=== PATIENT | female | born 1980 ===

== ENCOUNTER 2017-11-30 14:26 | Emergency (ER) | payer OTHER ==
[2017-11-30 14:38] VITALS: BP 139/84; PULSE 78; RESP 18; TEMP 98.5; O2SAT 98
[2017-11-30] MEDS ORDERED: Lactated Ringer's 1,000 ML IV STA (15:07)
--- NOTE | 2017-11-30 15:35 | ED PDOC ---
HPI: Female Pain Time Seen by Provider: 11/30/17 14:49 Chief Complaint (Nursing): Female Genitourinary Chief Complaint (Provider): Vaginal Bleeding and Pelvic Pain History Per: Patient History/Exam Limitations: no limitations Onset/Duration Of Symptoms: Days (x1) Current Symptoms Are (Timing): Still Present Additional Complaint(s): 37 year old female with no significant past medical history, who presents to the ED complaining of vaginal bleeding and pelvic pain x1 day. Patient is and 5 weeks . Denies starting care. Reports vaginal spotting today with a small clot and pelvic cramping pain. Also reporting intermittent morning sickness during this . Denies abnormal vaginal discharge or urinary symptoms. PMD: None Provided : 2 Para: 1 Past Medical History Reviewed: Historical Data, Nursing Documentation, Vital Signs Vital Signs: Last Vital Signs Temp 98.5 F 11/30/17 14:34 Pulse 78 11/30/17 14:34 Resp 18 11/30/17 14:34 BP 139/84 11/30/17 14:34 Pulse Ox 98 11/30/17 14:34 - Medical History PMH: No Chronic Diseases - Surgical History Surgical History: No Surg Hx - Family History Family History: States: Unknown Family Hx - Social History Current smoker - smoking cessation education provided: No Alcohol: None - Home Medications Home Medications: Ambulatory Orders Medication Instructions Recorded Acetaminophen [Tylenol Extra 1,000 mg PO Q6 PRN #60 tablet 11/30/17 Strength] Multivit/Folic Acid/I 1 tab PO DAILY #100 tab 11/30/17 [ Plus] - Allergies Allergies/Adverse Reactions: Allergies Allergy/AdvReac Type Severity Reaction Status Date / Time No Known Allergies Allergy Verified 11/30/17 14:38 Review of Systems ROS Statement: Except As Marked, All Systems Reviewed And Found Negative Gastrointestinal: Positive for: Nausea, Vomiting Genitourinary Female: Positive for: Vaginal Bleeding, Pelvic Pain. Negative for : Dysuria, Frequency, Incontinence, Vaginal Discharge Physical Exam - Reviewed Nursing Documentation Reviewed: Yes Vital Signs Reviewed: Yes - Physical Exam Appears: Positive for: In Acute Distress (mild painful) Head Exam: Positive for: ATRAUMATIC, NORMOCEPHALIC Skin: Positive for: Warm, Dry Neck: Positive for: Painless ROM, Supple Cardiovascular/Chest: Positive for: Regular Rate, Rhythm, Chest Non Tender. Negative for: Murmur Respiratory: Positive for: Normal Breath Sounds. Negative for: Wheezing Gastrointestinal/Abdominal: Positive for: Soft, Tenderness (suprapubic tenderness to palpation). Negative for: Mass, Distended, Guarding, Rebound Back: Positive for: Normal Inspection. Negative for: Decreased ROM Extremity: Positive for: Normal ROM. Negative for: Deformity Lymphatic: Negative for: Adenopathy Neurologic/Psych: Positive for: Alert. Negative for: Motor/Sensory Deficits - Laboratory Results Result Diagrams: 11/30/17 15:33 - ECG O2 Sat by Pulse Oximetry: 98 (RA) Pulse Ox Interpretation: Normal Medical Decision Making Medical Decision Making: Time: 14:51 Initial Impression: Vaginal bleeding in early . Differential diagnoses include, but are not limited to threatened miscarriage, ectopic , dehydration, and UTI Initial Plan: --Blood type and screen --Beta-HCG, quantitative --ED Urine dipstick --ED Urine --CBC w/ differential --Chlamydia/GC RNA, TMA --Lactated Ringer's 1,000 mls/hr --Urinalysis --US OB Transvaginal --Reevaluation Time: 18:52 FINDINGS: A single live intrauterine is noted with a heart rate of 153 beats per minute. A normal yolk sac is observed. [place] rump length measures 1.13 cm yielding an estimated gestational age of 7 weeks and 2 days. Solid appearing lesion in the left ovary measuring 2.1 cm with increased vascularity. The right ovary is normal No free fluid is seen in the cul-de-sac. IMPRESSION: Single live early intrauterine with an estimated due date of 2017. Solid appearing lesion in the left ovary measuring 2.1 cm. Continued sonographic followup recommended Labs c/w 7 wk . No clinically significant lab abnormalities 7p Pt reports feeling better after IVF. [facility] Reviewed results with pt and need for repeat ultrasound, specifically for LEFT ovary. Scribe Attestation: Documented by Mark Stephens, acting as a scribe for Delmy Salgado MD. Provider Scribe Attestation: All medical record entries made by the Scribe were at my direction and personally dictated by me. I have reviewed the chart and agree that the record accurately reflects my personal performance of the history, physical exam, medical decision making, and the department course for this patient. I have also personally directed, reviewed, and agree with the discharge instructions and disposition. Disposition - Clinical Impression Clinical Impression: Threatened miscarriage, Abdominal pain in Counseled Patient/Family Regarding: Studies Performed, Diagnosis - Disposition [facility] - [facility] Disposition: Routine/Home Disposition Time: 19:08 Condition: STABLE Additional Instructions: WILTON VITAMINAS DIARIO WILTON TYLENOL PARA DOLOR KALIE MUCHO LIQUIDOS Y DESCANSE. NO ALGUNAS EN LA VAGINA: NO SEXO, NO TAMPON, NO DOUCHE POR 3 MICHEL REGRESA SI SIENTE PEOR, SI ESTA [place] MAS QUE PAOLA KOTEX CADA PAOLA HORA, MUCHO DOLOR, SI SIENTE PERDIR CONOSIMIENTO, O OTRAS MALAS SINTOMAS VISITA A [facility] A CONTINUAR TRATIMIENT DE EMBERAZO. NECESITA REPITAR BIANCHI SONOGRAMA EN 1-2 SEMANAS. Prescriptions: Acetaminophen [Tylenol Extra Strength] 1,000 mg PO Q6 PRN #60 tablet PRN Reason: FEVER OR PAIN Multivit/Folic Acid/I [ Plus] 1 tab PO DAILY #100 tab Instructions: Bleeding With Print Language: ARMENIAN
[2017-11-30 15:36] LABS: EOS # 0.2 K/uL (0.0-0.7); EOS % 1.9 % (0.0-4.0); HEMOGLOBIN 12.7 g/dL (12.0-16.0); LYMPH # 2.2 K/uL (1.0-4.3); LYMPH % 25.1 % (20.0-40.0); MEAN CELL VOLUME 87.5 fl (81.0-99.0); MEAN CORPUSCULAR HEMOGLOBIN 28.8 pg (27.0-31.0); MEAN CORPUSCULAR HGB CONC 32.9 g/dL (33.0-37.0); MEAN PLATELET VOLUME 9.1 fl (7.2-11.7); MONO # 1.1 K/uL (0.0-0.8); MONO % 12.5 % (0.0-10.0); NEUT # 5.4 K/uL (1.8-7.0); NEUT % 60.5 % (50.0-75.0); RBC 4.39 Mil/uL (3.80-5.20); RED CELL DISTRIBUTION WIDTH 14.1 % (11.5-14.5)
[2017-11-30 16:36] LABS: SQUAMOUS EPITHIAL 2 /hpf (0-5); URINE BACTERIA RARE (<OCC); URINE BILIRUBIN NEGATIVE (NEGATIVE); URINE BLOOD MODERATE (NEGATIVE); URINE CLARITY SLIGHTY-CLOUDY (Clear); URINE COLOR YELLOW (YELLOW); URINE GLUCOSE (UA) NEG (Normal); URINE LEUKOCYTE ESTERASE TRACE Leu/uL (Negative); URINE NITRATE NEGATIVE (NEGATIVE); URINE PROTEIN NEGATIVE (NEGATIVE); URINE UROBILINOGEN 0.2-1.0 mg/dL (0.2-1.0)
--- NOTE | 2017-12-01 09:02 | US ---
PROCEDURE: OB Pelvic Ultrasound HISTORY: preg pelvic pain bleed r/o ectopic COMPARISON: None available. FINDINGS: UTERUS: Gestational sac: Single intrauterine gestation. Measures 1.9 cm compatible with estimated gestational age of 6 weeks, 2 days Yolk sac: 0.2 cm pole: [place]-rump length measures 1.1 cm compatible with estimated gestational age of 7 weeks, 2 days Heart rate: 153 bpm. age (Ultrasound estimated): 6 weeks, 6 days Peg-gestational hemorrhage: None. Date of delivery (Ultrasound estimated) : 07/20/2018 Uterus measures 9.5 x 5.0 x 6.6 cm. Anteverted. Normal in size and appearance. CERVIX: Measures 4.9 cm. Long and closed. No cervical abnormality seen. RIGHT OVARY: Measures 2.8 x 2.0 x 2.3 cm. No mass lesion. Normal flow. LEFT OVARY: Measures 3.7 x 1.7 x 3.2 cm. Corpus luteum measuring 2.1 x 1.3 x 2.0 cm. Normal flow. FREE FLUID: None. OTHER FINDINGS: None. IMPRESSION: Single live intrauterine gestation with average ultrasound age of 6 weeks, 6 days. heart rate 153 beats per minute. Cervix long and closed.
== END 2017-11-30 19:25 | disposition home or self-care (01) ==
LOC: H.ER 14:26
DX: O20.0 Threatened abortion (principal); O26.891 Other specified pregnancy related conditions, first trimester; Z3A.01 Less than 8 weeks gestation of pregnancy
CPT/HCPCS: 76817; 81003; 81025; 84702; 85025; 86850; 86900; 87491; 87591; 96360; 99285; J7120

== ENCOUNTER 2018-07-14 14:51 | Emergency (ER) | payer SELFPAY ==
--- NOTE | 2018-07-14 16:46 | OBHP ---
Datetime: 07/14/2018 15:46 IP Adm Impression: Term, intrauterine IP Admit Plan: Observation/Evaluation; Discharge home Admit Comment, IP Provider: 37 yo @ 39.5 weeks based on LMP of 10/09/17 presents with lower pelvic pain. She states pain began this morning around 6 am associated with bloody show that occurred around 8 am. Denies vaginal bleeding, loss of fluid and states that she feels good movement. Last sexual activity reported two days ago. OB history: Follows at [facility]- Dr. Luis. 1 previous without any complications. PMH: denies Family history: Denies Allergies: N.K.D.A Surgical history: Denies Social history: No smoking, drinking or illicit drug use. Labs: HIV: Negative HbsAg: negative GBS: negative Rubella: Immune GC/Cl: Negative RPR: negative ABO: O+ Antibody: negative Physical exam: Resting comfortably in hospital bed, no acute distress Heart: no murmurs, regular rate and rhythm, S1, S2 normal. Lungs: clear to auscultation bilaterally, no wheezing Abdomen: gravid; Soft, nontender to palpation CVA: negative Vaginal exam: external genitalia- no lesions present. Cervix: 3 cm/ 80-90 %/ -1 MONITOR: Baseline: 150; moderate; Accelerations present; No Decelerations. Contractions ever y 8-10 minutes. Category I. Assessment: 37 yo with IUP @ 39.5 weeks based on LMP of 10/09/17 presents with lower pelvi c pain rhina every 8-10 minutes. Plan: - monitor on heart monitor for >20 mins - discharge discussed with patient since cervical exam yields 3cm dilation, patient would like to go home and rest until she is in active labor. Discussed if there is a gush of fluid or contractions begin to come more frequent and more intense to return to the OB E.D. Plan discussed with Dr. Pham and Dr. Medel ---Kathy Hemphill, PGY-1 Family Medicine. - The patient was seen with the resident I agree with the note Pelvic Type - PN: Adequate Extremities - PN: Not Done Abdomen - PN: Normal Back - PN: Normal Breast - PN: Not Done Lungs - PN: Normal Heart - PN: Normal Thyroid - PN: Not Done Neurologic - PN: Not Done HEENT - PN: Normal General - PN: Normal FHR - Baseline A Provider: 150 EGA AdmitDate IP: 39.5 IP Chief Complaint: Uterine contractions; Maternal discomfort NICHD Variability Prov Fetus A: Moderate 6-25bpm NICHD Accel Fetus A IP Provider: [id number] FHR Category Provider Fetus A: Category I NICHD Decel Fetus A IP Provider: None Genitourinary Exam: Normal DTRs - PN: Not Done
== END 2018-07-14 16:00 | disposition home or self-care (01) ==
LOC: H.EROB2 14:51
DX: O26.93 Pregnancy related conditions, unspecified, third trimester (principal); R10.2 Pelvic and perineal pain; O26.853 Spotting complicating pregnancy, third trimester; O48.0 Post-term pregnancy; Z3A.40 40 weeks gestation of pregnancy

== ENCOUNTER 2018-07-14 19:35 | Inpatient (IN) | payer MEDICAID, SELFPAY ==
[2018-07-14 20:01] VITALS: BMI 29.6
[2018-07-14] MEDS ORDERED: Oxytocin 10 Units/ml Inj IM ONE (20:22)
[2018-07-14] MEDS ORDERED: Oxytocin 30 UNIT 30 UNITS/500 ML BAG IV ONE (20:31)
[2018-07-14] MEDS ORDERED: Benzocaine/Menthol SPRAY TOP PRN (20:31)
[2018-07-14 21:13] LABS: HEMOGLOBIN 12.1 g/dL (12.0-16.0); MEAN CORPUSCULAR HEMOGLOBIN 27.4 pg (27.0-31.0); MEAN CORPUSCULAR HGB CONC 33.1 g/dL (33.0-37.0); RBC 4.41 Mil/uL (3.80-5.20); RED CELL DISTRIBUTION WIDTH 17.1 % (11.5-14.5); WHITE BLOOD COUNT 10.2 K/uL (4.8-10.8)
[2018-07-15 01:00] VITALS: O2SAT 99
[2018-07-15] MEDS ORDERED: Benzocaine/Menthol SPRAY TOP PRN (05:40)
[2018-07-15 06:23] LABS: HEMOGLOBIN 10.6 g/dL (12.0-16.0); MEAN CELL VOLUME 82.9 fl (81.0-99.0); MEAN CORPUSCULAR HEMOGLOBIN 27.1 pg (27.0-31.0); MEAN CORPUSCULAR HGB CONC 32.6 g/dL (33.0-37.0); RBC 3.92 Mil/uL (3.80-5.20); RED CELL DISTRIBUTION WIDTH 17.1 % (11.5-14.5); WHITE BLOOD COUNT 12.9 K/uL (4.8-10.8)
--- NOTE | 2018-07-16 09:50 | OBPPN ---
Datetime: 07/16/2018 09:46 PP Pain Prov: Within normal limits PP Pain Prov comment: ambulating without difficulty PP Nausea Prov: Denies PP Flatus Prov: Yes PP BM Prov: Yes PP Nausea Prov comment: without difficulty PP Flatus Prov comment: denies CP/SOB/Palpitations/abd pain/fever/chills PP Heart Prov: Normal PP Lungs Prov: Normal PP Abdomen/Uterus Prov: Normal PP Lochia Prov: Normal PP Progress Prov: Normal PP Impression Prov: Normal progression PP Plan Prov: Discharge PP Progress Note Prov: DC home today f/u appt with Dr. Luis 08/27/18 920a for her f/u appt for her baby 07/20/18 at 9a IP PP Procedures: None Vital Signs Provider PP: Reviewed; Within Normal Limits
--- NOTE | 2018-07-16 09:55 | OBDCSUM ---
Datetime: 07/14/2018 15:49 Follow up at, Provider: MARIZA Disch Instr Activity: Normal activity; May Shower Discharge Instructions, Provider: Routine instructions given Discharge Diagnosis, Provider: Term Delivered Discharge Time: 07/16/2018 10:00 Follow up in weeks, Provider: 08/27/18 Contraception discussed, Prov: Yes Disch Activity Restrictions: No exercising; No lifting; Minimize stair-climbing; No sexual activity; Nothing in vagina - Potter, tampons, douche Discharge Comment, Provider: DOA: 07/14/18 EGA: 39.5 wks. Diagnosis: Active labor, ruptured membranes. risk factors: VALENTE (37 years old) Summary of : . Uncomplicated . L_D summary: Patient arrived at 8cm/100/0 station. Before EFM was able to be started patient ashlee mohan on stretcher in [place]. DOD: 07/14/18 Time: 20:12 NB: Male : 9/9 Weight: 3800 EBL: 200 mL Laceration: 1st degree requiring no stitches summary: No complications during , patient ambulating and urinating without difficulty. Passing g as but denies bowel movement. Lochia similar to menses. Baby bottle feeding only. CBC : Hgb/Hct 10.6/32.5 Blood type: O+, antibody neg DISCHARGE DATA: D/C DATE: 07/16/18 TIME: 10:00 am DISCHARGE INSTRUCTIONS: -PNV 1 tab po q/day -Ibuprofen 600 mg 1 tab po prn q4-6 if moderate pain #30. NO REFILL. Percocet 5/325 mg 1tab po prn q6h if severe pain #20. NO REFILL -Ambulatory with caution, nothing per vagina/sex for 4 weeks, no heavy lifting, avoid stairs, if e xcessive bleeding or fever without relief from Tylenol go to ED Mom follow-up appt 08/27/18 @ 9:20am @ [facility] Baby follow-up appt 07/20/18 @ 9am @ [facility] Case discussed with Dr. Chung ---Orly Russo MD PGY1 [facility] Family Medicine Attending addendum: I saw and examined the patient at bedside this morning. I reviewed the resident note above. I agree with findings and management except patient will not be given percocet for discharge medic ations. Ibuprofen for pain, colace and iron. Micronor rx for contraception. DC home today. Contraception after Delivery: Control Pill/Patch
[2018-07-16 19:28] VITALS: BP 103/68; PULSE 98; RESP 18; TEMP 98.3
== END 2018-07-16 14:25 | disposition home or self-care (01) | DRG 807 ==
LOC: H.EROB2 19:35 → H.L&D 20:30 → H.OB/GYN 23:20
PROVIDERS: ADMIT Obstetrics & Gynecology Gynecology; ATTEND Obstetrics & Gynecology Gynecology
PROC: 0HQ9XZZ Repair Perineum Skin, External Approach (ICD-10-PCS; principal; 2018-07-14)
PROC: 10E0XZZ Delivery of Products of Conception, External Approach (ICD-10-PCS; 2018-07-14)
PROC: 4A1HXCZ Monitoring of Products of Conception, Cardiac Rate, External Approach (ICD-10-PCS; 2018-07-14)
DX: O62.3 Precipitate labor (principal); Z37.0 Single live birth; Z3A.39 39 weeks gestation of pregnancy